=== PATIENT | female | born 1960 | race Caucasian/White ===

== ENCOUNTER 2017-03-28 18:15 | Emergency (ER) | payer MEDICARE, OTHER ==
[~2017-03-28 18:15] MED LIST: ABILIFY5 PO; DRAMAMINE25 MG PO; HYCET 7.5 MG-3473 ML PO; HYDROCHLOROT12.5 MG PO; KLONO1 PO; L20 PO; LATUDA40 MG PO; PROZAC40 MG PO; TOPAMAX25 PO; VASOTEC5 PO; ZANTAC150 MG PO; ZOCOR20 PO
== END 2017-03-28 19:12 | disposition home or self-care (01) ==
LOC: ER 18:15
DX: R20.2 Paresthesia of skin (principal); K21.9 Gastro-esophageal reflux disease without esophagitis; F32.9 Major depressive disorder, single episode, unspecified; F41.9 Anxiety disorder, unspecified; Z90.710 Acquired absence of both cervix and uterus; Z88.2 Allergy status to sulfonamides; Z88.5 Allergy status to narcotic agent; Z79.899 Other long term (current) drug therapy
CPT/HCPCS: 99283